=== PATIENT | female | born 1955 | race Caucasian/White ===

== ENCOUNTER 2017-02-12 14:53 | Observation (INO) | payer BC, OTHER ==
[~2017-02-12] VITALS: Ht 160 cm; Wt 90.0 kg
[~2017-02-12 14:53] MED LIST: ALPR0.25 PO; ASPI-496 PO; ATEN25TA PO; CEPH-368 PO; CYCL-259 PO; DICL100G8 TD; DICL112S2 TD; GABA300C10 PO; HYDR12.547 PO; LEVO125T5 PO; MELO-184 PO; MELO15TA6 PO; OXYC30TA PO; OXYC5TAB3 PO; POTA99TA3 PO; lidocaine patch TD
[2017-02-12 15:42] LABS: BLOOD UREA NITROGEN 14 mg/dL (7-18)
[2017-02-12 15:44] LABS: ACETAMINOPHEN < 2 mcg/mL (10-30)
[2017-02-12 15:49] LABS: DAU SCREEN DISCLAIMER
[2017-02-12] MEDS ORDERED: ZIPRASIDONE 20 MG INJ IM ONE ×2 (16:14→16:30)
[2017-02-12] MEDS ORDERED: SODIUM CHLORIDE 0.9% 1,000 ML IV SCH (20:07)
[2017-02-12] MEDS ORDERED: QUETIAPINE 25MG TABLET PO PRN (20:30)
[2017-02-12] MEDS ORDERED: DIPHENHYDRAMINE 50 MG CAPSULE PO PRN (20:30)
[2017-02-12] MEDS ORDERED: POLYETHYLENE GLYCOL 17 GM PACKET PO PRN (20:30)
[2017-02-12] MEDS: HEPARIN 5,000 UNITS/ML, 1ML SQ SCH (20:30)
[2017-02-12 20:58] VITALS: BP 114/78
[2017-02-12] MEDS ORDERED: CYCLOBENZAPRINE 10 MG TABLET PO SCH (21:00)
[2017-02-12] MEDS ORDERED: LIDODERM 5% PATCH TD PRN (21:30)
[2017-02-12] MEDS: OXYcodone IR 5MG TABLET PO PRN (22:38)
[2017-02-13] MEDS: HEPARIN 5,000 UNITS/ML, 1ML SQ SCH (04:30)
[2017-02-13] MEDS: OXYcodone IR 5MG TABLET PO PRN (05:42)
[2017-02-13 06:25] LABS: BLOOD UREA NITROGEN 14 mg/dL (7-18)
[2017-02-13] MEDS ORDERED: LEVOTHYROXINE 125 MCG TABLET PO SCH (09:00)
[2017-02-13] MEDS ORDERED: HYDROCHLOROTHIAZIDE 12.5 MG CAPSULE PO SCH (09:00)
[2017-02-13] MEDS ORDERED: SENNA/DOCUSATE TABLET PO SCH (09:00)
[2017-02-13] MEDS ORDERED: TEMPLATE NON-FORMULARY MED. (Potassium Gluconate** 99 MG) PO SCH (09:00)
[2017-02-13] MEDS ORDERED: ATENOLOL 25 MG TABLET PO SCH (09:00)
[2017-02-13] MEDS ORDERED: SODIUM CHLORIDE 0.9% 1,000 ML IV SCH (20:07)
== END 2017-02-13 07:45 ==
LOC: ED 19:16 → INTOOBSV 19:20 → EDIP 19:20 → 3E 20:56
PROVIDERS: ADMIT Hospitalist; ATTEND Hospitalist
DX: R45.851 Suicidal ideations (principal); F11.20 Opioid dependence, uncomplicated; I10 Essential (primary) hypertension; G89.29 Other chronic pain; M54.9 Dorsalgia, unspecified; F10.10 Alcohol abuse, uncomplicated; E87.6 Hypokalemia; E03.9 Hypothyroidism, unspecified; G62.9 Polyneuropathy, unspecified; N17.9 Acute kidney failure, unspecified; G25.81 Restless legs syndrome; R00.0 Tachycardia, unspecified; R73.9 Hyperglycemia, unspecified; F41.1 Generalized anxiety disorder
CPT/HCPCS: 36415; 80048; 80307; 80329; 82040; 83735; 84439; 84443; 85025; 96372; 99285; G0378; J3486; G0480

== ENCOUNTER → 2017-05-12 | Outpatient (CLI) | payer OTHER, MEDICAID ==
[~2017-05-12] MED LIST changes: +DICL100G19 TD; -DICL100G8 TD; -MELO-184 PO; +MELO15TA24 PO
== END | disposition home or self-care (01) ==
LOC: CFH 15:34
PROVIDERS: ATTEND Physician Assistant Medical
DX: I08.3 Combined rheumatic disorders of mitral, aortic and tricuspid valves (principal); I11.0 Hypertensive heart disease with heart failure; I50.9 Heart failure, unspecified; F41.9 Anxiety disorder, unspecified
CPT/HCPCS: 93306

== ENCOUNTER → 2017-06-27 | Outpatient (CLI) | payer OTHER, MEDICAID | END | disposition home or self-care (01) | LOC: CFH 13:40 | PROVIDERS: ATTEND Physician Assistant Medical | DX: M43.16 Spondylolisthesis, lumbar region (principal); M48.061 Spinal stenosis, lumbar region without neurogenic claudication; M48.07 Spinal stenosis, lumbosacral region; Z98.890 Other specified postprocedural states; Z98.1 Arthrodesis status | CPT/HCPCS: 72131 ==

== ENCOUNTER 2017-08-09 19:04 | Emergency (ER) | payer OTHER, MEDICAID ==
[~2017-08-09] VITALS: Ht 154.9 cm; Wt 102.5 kg
[2017-08-09 19:06] VITALS: BP 112/71
== END 2017-08-09 20:35 | disposition home or self-care (01) ==
LOC: ED 20:00
DX: S99.911A Unspecified injury of right ankle, initial encounter (principal); G89.11 Acute pain due to trauma; M19.071 Primary osteoarthritis, right ankle and foot; I10 Essential (primary) hypertension; E66.9 Obesity, unspecified; X58.XXXA Exposure to other specified factors, initial encounter; Y93.89 Activity, other specified; Y92.89 Other specified places as the place of occurrence of the external cause; Y99.8 Other external cause status
CPT/HCPCS: 99284

== ENCOUNTER 2020-05-05 11:37 | Day surgery (SDC) | payer MEDICAID, MEDICARE ==
[~2020-05-05] VITALS: Ht 153.7 cm; Wt 104.4 kg
[~2020-05-05 11:37] MED LIST changes: -OXYC30TA PO; +OXYC30TA3 PO
[2020-05-05] MEDS ORDERED: CARV-39 PO (12:41)
[2020-05-05] MEDS ORDERED: ALLOPURINOL PO (12:41)
[2020-05-05] MEDS ORDERED: AMOXICILLIN PO (12:41)
[2020-05-05] MEDS ORDERED: ASPIRIN PO (12:41)
[2020-05-05] MEDS ORDERED: MOBIC PO (12:41)
[2020-05-05] MEDS ORDERED: ULTRAM PO (12:41)
[2020-05-05 12:42] VITALS: BP 120/80
[2020-05-05] MEDS ORDERED: LIDOCAINE-MPF 1%, 5ML ONE (12:48)
[2020-05-05] MEDS ORDERED: PLEASE ENTER ALLERGIES MC SCH (13:00)
[2020-05-05] MEDS ORDERED: OMNIPAQUE 180 MG/ML, 10ML VIAL ONE (13:00)
[2020-05-05] MEDS ORDERED: SODIUM CHLORIDE 0.9% 1,000 ML IV SCH (13:00)
[2020-05-05] MEDS ORDERED: PLEASE ENTER HEIGHT AND WEIGHT MC SCH (13:00)
== END 2020-05-05 17:10 | disposition home or self-care (01) ==
LOC: RAD 11:37
PROVIDERS: ATTEND Physician Assistant Surgical
DX: M96.1 Postlaminectomy syndrome, not elsewhere classified (principal); M48.061 Spinal stenosis, lumbar region without neurogenic claudication; M54.16 Radiculopathy, lumbar region; I10 Essential (primary) hypertension; M79.7 Fibromyalgia; F41.9 Anxiety disorder, unspecified; M17.10 Unilateral primary osteoarthritis, unspecified knee; Z79.82 Long term (current) use of aspirin; Z79.1 Long term (current) use of non-steroidal anti-inflammatories (NSAID); Z79.890 Hormone replacement therapy; Z79.891 Long term (current) use of opiate analgesic; Z79.899 Other long term (current) drug therapy; Z88.8 Allergy status to other drugs, medicaments and biological substances
CPT/HCPCS: 62284; 72132; J7030; Q9965; 72131

== ENCOUNTER 2020-08-13 13:54 | Emergency (ER) | payer MEDICARE ==
[~2020-08-13] VITALS: Ht 154.9 cm; Wt 106.9 kg
[~2020-08-13 13:54] MED LIST changes: +ALLOPURINOL PO; +AMOXICILLIN PO; +ASPIRIN PO; +CARV-39 PO; +MOBIC PO; +ULTRAM PO
[2020-08-13] MEDS ORDERED: DILTIAZEM 5 MG/ML, 5ML IV ONE (14:30)
[2020-08-13] MEDS ORDERED: SODIUM CHLORIDE FLUSH 10ML SYR IVF ONE (14:30)
[2020-08-13] MEDS ORDERED: DILTIAZEM 125 MG in SODIUM CHLORIDE 0.9% 100 ML IV SCH (14:30)
[2020-08-13 14:41] LABS: BASOPHILS % (AUTO) 2 % (0-1); EOSINOPHILS % (AUTO) 3 % (1-7); LYMPHOCYTES % (AUTO) 23 % (22-44); MEAN CORPUSCULAR HEMOGLOBIN 32.3 pg (27.0-34.8); MEAN PLATELET VOLUME 7.3 fL (7.4-10.4); MONOCYTES % (AUTO) 8 % (2-9); NEUTROPHILS % (AUTO) 64 % (42-75); PLATELET COUNT 219 x10^3/uL (130-400); RED BLOOD COUNT 4.48 x10^6/uL (3.82-5.3); RED CELL DISTRIBUTION WIDTH 13.3 % (9.6-15.2)
[2020-08-13 14:42] LABS: MD NO
--- NOTE | 2020-08-13 14:49 | NUR ---
This pt presents from the dentist where she went because she has an infection and was hoping to get abx. Pt states that she feels her heart flutter when she gets oral infections. Pt denies cardiac hx. Pt is anxious about her health and is a poor historian. Pt was connected to all monitoring equipment upon arrival to room and IV established. This RN saw only NSR on the monitor. HR in the 70s. Repeat EKG done. MD Trejo to bedside.
[2020-08-13 14:53] LABS: ALANINE AMINOTRANSFERASE 20 U/L (12-78); ALBUMIN 3.6 g/dL (3.4-5.0); ANION GAP 9 mmol/L (5-15); CHLORIDE 109 mmol/L (98-107); CREATININE 1.03 mg/dL (0.55-1.02)
[2020-08-13 15:03] LABS: ALKALINE PHOSPHATASE 99 U/L (45-117); BILIRUBIN,TOTAL 1.2 mg/dL (0.2-1.0); TOTAL PROTEIN 6.8 g/dL (6.4-8.2)
[2020-08-13] MEDS ORDERED: APIXABAN 5 MG TABLET ONE ×2 (16:08→16:17)
--- NOTE | 2020-08-13 16:17 | NUR ---
THIS RN WENT TO DISCHARGE PATIENT, HOWEVER, SHE WAS IN A.FIB WITH RVR IN THE 130S-170S WHEN AMBULATING. PT AMBULATED TO BATHROOM WITH NO PROBLEMS AND STATED THAT SHE WAS NOT DIZZY. SHE COMPLAINS OF A "FLUTTERY FEELING" IN HER CHEST, BUT OTHERWISE FEELS WELL AND BLOOD PRESSURE NOT COMPROMISED WITH THE TACHYCARDIA. DR. BLANCHARD NOTIFIED. DR. BLANCHARD ORDERED ELIQUIS AND CARDIZEM PO. PHARMACY REQUEST SLIP SENT TO PHARMACY FOR CARDIZEM PO. PT TO BE DISCHARGED AFTER TAKING ORAL MEDS AND IS TO FOLLOW-UP WITH DR. MACK.
--- NOTE | 2020-08-13 16:20 | NUR ---
Pt denies dizziness, CP or other symptoms even when walking.
[2020-08-13] MEDS ORDERED: APIXABAN 5 MG TABLET PO ONE (17:00)
[2020-08-13] MEDS ORDERED: DILTIAZEM 60 MG TABLET PO ONE (17:00)
[2020-08-13] MEDS ORDERED: PROPOFOL 10 MG/ML, 20ML ONE (17:31)
[2020-08-13] MEDS ORDERED: METOPROLOL 1 MG/ML, 5ML ONE (17:43)
--- NOTE | 2020-08-13 17:51 | NUR ---
PREPARED PATIENT FOR CARDIOVERSION, BUT PATIENT CONVERTED SPONTANEOUSLY. DR. BLANCHARD NOTIFIED AND CAME TO THE BEDSIDE. LOPRESSOR 5MG IVP GIVEN. WILL CONTINUE TO MONITOR PATIENT. PT RESTING WITH NO COMPLAINTS.
[2020-08-13 18:00] VITALS: BP 118/71
[2020-08-13] MEDS ORDERED: PROPOFOL 10 MG/ML, 20ML IVPush ONE (18:00)
[2020-08-13] MEDS ORDERED: METOPROLOL 1 MG/ML, 5ML IVPush ONE (18:00)
--- NOTE | 2020-08-13 18:49 | NUR ---
Patient given discharge instructions and they have confirmed that they understand the instructions. Patient ambulatory with steady gait.
== END 2020-08-13 18:50 | disposition home or self-care (01) ==
LOC: ED 18:30
DX: I48.0 Paroxysmal atrial fibrillation (principal); K02.9 Dental caries, unspecified; R00.2 Palpitations; I10 Essential (primary) hypertension; E66.9 Obesity, unspecified; F17.200 Nicotine dependence, unspecified, uncomplicated; Z68.41 Body mass index [BMI] 40.0-44.9, adult; Z86.39 Personal history of other endocrine, nutritional and metabolic disease; Z90.49 Acquired absence of other specified parts of digestive tract; Z79.899 Other long term (current) drug therapy
CPT/HCPCS: 36415; 80053; 83735; 84443; 85025; 93005; 96374; 99284

== ENCOUNTER → 2020-09-22 | Outpatient (CLI) | payer MEDICARE ==
[~2020-09-22] MED LIST changes: -CYCL-259 PO; +CYCL10TA2 PO; -OXYC5TAB3 PO; +OXYC5TAB98 PO
== END | disposition home or self-care (01) ==
LOC: CVU 06:48
PROVIDERS: ATTEND Internal Medicine Cardiovascular Disease
DX: I08.1 Rheumatic disorders of both mitral and tricuspid valves (principal); I11.9 Hypertensive heart disease without heart failure; R06.02 Shortness of breath; I48.0 Paroxysmal atrial fibrillation
CPT/HCPCS: 93306